=== PATIENT | male | born 1965 | race Caucasian/White ===

== ENCOUNTER → 2020-09-11 | Outpatient (CLI) | payer OTHER ==
[~2020-09-11] MED LIST: CLARITIN10 MG PO; FLEXERIL 10 MG10 MG PO; JANUMET XR 50-1 EACH PO; LEXAPRO10 MG PO; LIPITOR TAB 2020 MG PO; LOPRESSOR 25 MG25 MG PO; MOTION SICKNESS25 M3 PO; OMEPRAZOLE20 M1 PO; STEGLATRO5 MG PO; ZESTRIL40 MG PO
== END ==
LOC: EXRD 14:30
DX: S82.891A Other fracture of right lower leg, initial encounter for closed fracture (principal); M77.31 Calcaneal spur, right foot; I70.8 Atherosclerosis of other arteries; X58.XXXA Exposure to other specified factors, initial encounter
CPT/HCPCS: 73610

== ENCOUNTER 2021-02-17 13:12 | Emergency (ER) | payer OTHER ==
[~2021-02-17 13:12] MED LIST changes: -MOTION SICKNESS25 M3 PO
[2021-02-17 15:01] LABS: HEMOGLOBIN 15.8 gm/dl (14.0-17.5); RED BLOOD COUNT 4.95 M/UL (4.20-5.50); WHITE BLOOD COUNT 9.4 K/UL (4.5-11.0)
[2021-02-17 15:36] LABS: BUN/CREATININE RATIO 23 (0-10)
[2021-02-17] MEDS ORDERED: MOTION SICKNESS25 M3 PO (15:44)
== END 2021-02-17 16:30 | disposition home or self-care (01) ==
LOC: ER1 13:12
PROVIDERS: Physician Assistant
DX: R42 Dizziness and giddiness (principal); E78.5 Hyperlipidemia, unspecified; I10 Essential (primary) hypertension; E11.9 Type 2 diabetes mellitus without complications
CPT/HCPCS: 70450; 80053; 82550; 82553; 83874; 84484; 85025; 99284

== ENCOUNTER → 2021-04-07 | Outpatient (CLI) | payer OTHER ==
[~2021-04-07] MED LIST changes: +MOTION SICKNESS25 M3 PO
== END ==
LOC: KOH-I 03-19 11:00
DX: R10.33 Periumbilical pain (principal); K76.0 Fatty (change of) liver, not elsewhere classified; N28.1 Cyst of kidney, acquired
CPT/HCPCS: 76700

== ENCOUNTER → 2021-05-05 | Outpatient (CLI) | payer OTHER ==
[2021-05-05 11:49] LABS: BUN/CREATININE RATIO 17 (0-10)
== END ==
LOC: LAB 10:36
PROVIDERS: Family Medicine
DX: Z12.5 Encounter for screening for malignant neoplasm of prostate (principal); E78.2 Mixed hyperlipidemia; R35.1 Nocturia
CPT/HCPCS: 36415; 80053; 80061; 84153

== ENCOUNTER → 2021-05-12 | Outpatient (CLI) | payer OTHER | LOC: KOH-I 08:22 | DX: R10.9 Unspecified abdominal pain (principal); N28.1 Cyst of kidney, acquired | CPT/HCPCS: 74176 ==

== ENCOUNTER → 2021-10-06 | Outpatient (CLI) | payer OTHER | LOC: ECHO 09-26 12:15 → NM 09-26 13:00 → ECHO 08:46 | DX: I20.8 Other forms of angina pectoris (principal); R07.9 Chest pain, unspecified; I08.3 Combined rheumatic disorders of mitral, aortic and tricuspid valves | CPT/HCPCS: ECHO; 78452; 93017; 93306; A9502; J2785 ==

== ENCOUNTER 2021-11-04 11:24 | Emergency (ER) | payer OTHER ==
[2021-11-04 12:21] LABS: HEMOGLOBIN 15.3 gm/dl (14.0-17.5); RED BLOOD COUNT 5.14 M/UL (4.20-5.50); WHITE BLOOD COUNT 9.6 K/UL (4.5-11.0)
[2021-11-04 12:55] LABS: BUN/CREATININE RATIO 18 (0-10)
[2021-11-04] MEDS ORDERED: ISOSORBIDE MONO30 MG PO (15:21)
== END 2021-11-04 15:25 | disposition home or self-care (01) ==
LOC: ER1 11:24
PROVIDERS: Physician Assistant Medical
DX: R07.9 Chest pain, unspecified (principal); E11.9 Type 2 diabetes mellitus without complications; E78.5 Hyperlipidemia, unspecified; I10 Essential (primary) hypertension; Z79.82 Long term (current) use of aspirin
CPT/HCPCS: 71045; 80053; 82550; 82553; 83880; 84484; 85025; 93005; 99285

== ENCOUNTER → 2021-11-13 | Outpatient (CLI) | payer OTHER ==
[~2021-11-13] MED LIST changes: +ISOSORBIDE MONO30 MG PO
[2021-11-13 11:57] LABS: HEMOGLOBIN 15.6 gm/dl (14.0-17.5); RED BLOOD COUNT 5.18 M/UL (4.20-5.50); WHITE BLOOD COUNT 8.3 K/UL (4.5-11.0)
[2021-11-13 12:27] LABS: BUN/CREATININE RATIO 16 (0-10)
== END ==
LOC: LAB 11:17
PROVIDERS: Internal Medicine Interventional Cardiology
DX: I20.9 Angina pectoris, unspecified (principal); F41.9 Anxiety disorder, unspecified; R07.9 Chest pain, unspecified; F32.A Depression, unspecified; E11.65 Type 2 diabetes mellitus with hyperglycemia; R42 Dizziness and giddiness; E78.5 Hyperlipidemia, unspecified; I10 Essential (primary) hypertension
CPT/HCPCS: 36415; 80048; 85025; 85610; 85730; 93005

== ENCOUNTER → 2021-11-24 | Outpatient (CLI) | payer OTHER ==
[~2021-11-24] MED LIST changes: +ASPIRIN EC81 MG PO; +GLUCOTROL XL 22.5 MG PO; +METFORMIN HCL1000 MG PO
== END ==
LOC: CATH 06:28
DX: I20.8 Other forms of angina pectoris (principal); E11.65 Type 2 diabetes mellitus with hyperglycemia; I10 Essential (primary) hypertension; E78.2 Mixed hyperlipidemia; K21.9 Gastro-esophageal reflux disease without esophagitis; Z79.84 Long term (current) use of oral hypoglycemic drugs; Z20.822 Contact with and (suspected) exposure to COVID-19
CPT/HCPCS: 82962; 99152; 99153; C1769; C1887; C1894; J1644; J2250; J3010; Q9967

== ENCOUNTER 2022-01-04 10:56 | Emergency (ER) | payer OTHER | END 2022-01-04 13:19 | disposition home or self-care (01) | LOC: ER1 10:56 | DX: M79.602 Pain in left arm (principal); E11.9 Type 2 diabetes mellitus without complications; E78.5 Hyperlipidemia, unspecified; I10 Essential (primary) hypertension | CPT/HCPCS: 96372; 99283; J1885 ==